=== PATIENT | male | born 1955 | race Caucasian/White ===

== ENCOUNTER 2022-04-10 12:01 | Emergency (ER) | payer OTHER, SELFPAY ==
--- NOTE | ~2022-04-10 | CT_ITS ---
EXAMINATION: CT HEAD WITHOUT CONTRAST CLINICAL INFORMATION: Intermittent blindness right eye COMPARISON: None TECHNIQUE: Contiguous axial imaging was performed from the skull base to vertex without intravenous administration of contrast. Additional 2-D coronal and sagittal reformatted images are generated on the CT workstation and uploaded to PACS. This CT examination was performed using dose optimization techniques as appropriate, variously including the following: *Automated exposure control *Adjustment of mA and/or kV according to patient size (this includes techniques or standardized protocols for targeted exams where dose is matched to indication/reason for exam; i.e. extremities or head) *Use of iterative reconstruction technique DLP: 850 mGy-cm FINDINGS: There is no intracranial hemorrhage, hematoma, or extra-axial fluid collection. The ventricles are normal in size. There is no hydrocephalus, edema, or mass effect. The espinosa-white matter differentiation appears well preserved . There are bilateral basal ganglia calcifications. There is no visible acute territorial infarct or mass lesion. The orbits are unremarkable. The globes and optic nerves appear symmetric. The suprasellar cistern and quadrigeminal cistern are unremarkable. The calvarium appears intact. There is no pneumocephalus or orbital emphysema. There is some minor mucosal thickening left sphenoid, ethmoid air cells and posterior right sphenoid. No air-fluid levels. The middle ears and mastoids are compared clear. CT/CT head/brain wo IV con IMPRESSION: No acute intracranial abnormality.
--- NOTE | ~2022-04-10 | XR_ITS ---
EXAMINATION: XR CHEST CLINICAL INFORMATION: Right eye intermittent blindness. COMPARISON: None TECHNIQUE: 2 views of the chest were obtained. FINDINGS: The lungs are well-expanded with platelike atelectasis right lung base. Heart size and pulmonary vascularity is normal. There is mild dorsal spine spondylosis. No bony abnormality seen XR/XR chest 2V IMPRESSION: Minimal atelectatic changes right lung base. There is mild spondylosis dorsal spine.
--- NOTE | 2022-04-10 12:07 | ECG_ITS ---
Test Reason : WEAKNESS Blood Pressure : / mmHG Vent. Rate : 084 BPM Atrial Rate : 084 BPM P-R Int : 140 ms QRS Dur : 090 ms QT Int : 370 ms P-R-T Axes : 074 074 057 degrees QTc Int : 437 ms Normal sinus rhythm Nonspecific ST abnormality Abnormal ECG No previous ECGs available Referred By: Kimberly Haley Electronically Signed By:GHAZALA DENNIS MD
[2022-04-10 12:09] VITALS: BP 188/85; PULSE 88; RESP 18; TEMP 36.6; O2SAT 96; BMI 30.7
--- NOTE | 2022-04-10 12:10 | ED_ITS ---
HPI - Eye Problem General Chief complaint: Eye Problems Stated complaint: ? Stroke Sent By Dr Puga Seen by Provider: 04/10/22 13:55 Source: patient and family Mode of arrival: ambulatory Limitations: no limitations History of Present Illness HPI Narrative: 66yoM c PMHX of cataracts who is presenting to the ER with complaints of right eye visual changes where he goes blind only from right eye that last approximat juan 15-20 minutes that has been present since January. Reports he did not have an episode today it is usually comes only once a week. Although today he went to his eye doctor today and he was telling the parts lister his symptoms and parts lister told him that he could possibly having a stroke since January therefore he sent him here for further evaluation treatment. He reports this is only reason why he is here. He reports that he did not seek treatment 3 months ago because he relies that he could wait until his appointment today with his parts lister. He denies any other symptoms related to this. chief complaint: vision change Onset (ago): month(s) (2-3 months) Onset description: gradual Duration: intermittent Location: right eye Eye Symptoms: decreased vision Mechanism: none If Pain, Quality: other (No pain per patient ) Context: other (hx of cataract) Associated symptoms: none Treatments Prior to Arrival: none Related Data Allergies Allergy/AdvReac Type Severity Reaction Status Date / Time Penicillins [PENICILLINS] Allergy Unknown REACTION Unverified 12/08/19 16:45 UNKNOWN Review of Systems Review of Systems: Constitutional : No fevers, no chills, No changes in activity, No lethargy, No recent prior head injury, No agitation, No increased fussiness ENT/Mouth : No Ear Pain, No Nasal discharge/drainage Eyes: + Vision changes/blurry/decreased vision onlky to Right eye, No Eye Pain, No Swelling, No Redness, No Foreign Body, No Photophobia, no discharge, no drainage, no itching, no eyelid edema, no contact lens uses, no recent welding, no bleeding Cardiovascular : No Chest Pain, No SOB Respiratory : No Cough Gastrointestinal : No Nausea, No Vomiting, No abdominal Pain Genitourinary : No Dysuria, No Urinary Frequency, No Urinary Incontinence, No Urgency, No Flank Pain Musculoskeletal : No joint pain, No neck stiffness, No back pain/injury Skin : No lacerations Neuro : No unsteady gait, No Paresthesias, No Loss of Consciousness, No altered mental status, No dizziness, No Headache Denies past medical history of HIV, recent trauma, coagulopathy, recent spinal/ epidural procedure, new medication, URI symptoms, close contacts with similar symptoms, tick bite, or known CO2 exposure. Yes all other systems are reviewed and are negative PMFSH Past Medical History Attestation statement: The following information was validated with the patient. Source: old records reviewed, obtained from family and nursing notes reviewed Social History Social History Advance Directives: No Physical Exam Vital Signs: Vital Signs: Last Vital Signs Temp 97.8 F 04/10/22 12:09 Pulse 88 04/10/22 12:09 Resp 18 04/10/22 12:09 BP 188/85 H 04/10/22 12:09 Pulse Ox 96 04/10/22 12:09 O2 Del Method 04/10/22 12:09 BMI result Body Mass Index 30.7 vital signs have been reviewed as normal and appeared to be correct. Blood pressure 188/85. Heart rate normal. Respiration rate normal. Temperature normal. Oxygen saturation normal. Appearance: Alert. Oriented X3. No acute distress. Head: Normal external exam. Normocephalic. Atraumatic. Able to rotate head bilaterally. Eyes: PERRLA. EOMI. Conjunctiva are normal. Cornea are normal. Funduscopic exam within normal limits. Sclera normal. Eyelids normal. No papilledema noted. Anterior chamber normal. No photophobia noted. No nystagmus noted. Corneal reflex normal. ENT: EAC normal. TM's Normal. Hearing normal. Pharynx normal. Uvula midline. tongue midline. Moist mucous membranes. No trismus noted. No drooling noted. No muffled voice noted. No nystagmus noted. Neck: Normal inspection. Neck supple. FROM. No adenopathy. Trachea midline. Thyroid Normal. No meningeal signs. No neck mass noted. CVS: Normal heart rate and rhythm. Heart sound normal. No murmurs noted. Pulses normal throughout. Respiratory: No respiratory distress. Painless inspiration. Breath sounds normal. No wheezes/rales/rhonchi noted. Chest nontender. No accessory muscle usage noted or decreased air movement noted. Abdomen: Soft and nontender. Bowel sounds normal in all 4 quadrants. No distention noted. No organomegaly noted. No visible injury noted. Back: No CVA tenderness. Full range of motion noted. Skin: Skin warm and dry. Normal skin color. Normal skin turgor. No rashes/lesions/lacerations noted. Extremities: No lower extremity edema. Extremities exhibit normal range of motion. Extremities nontender. Able to shrug shoulders bilaterally and keep up against resistance. Neuro: Oriented X 3. No motor deficit. No sensory deficit. Reflexes normal. Moving all extremities. No focal motor deficits. Cranial nerves II-XI intact bilaterally. Facial strength normal. Normal cognition. Speech normal. Gait n ormal. Strength 5/5 throughout. No pronator drift. No tremor noted. No fasciculations noted. No rigidity noted. Muscle tone normal throughout. No asterixis noted. Avbvch-de-okfa test normal. Heel to peralta test normal. Tandem gait normal. Does not sway with eyes open. Romberg test negative. Rapid a lternating movement upper extremity normal. Rapid alternating movement lower extremity normal. Hand drop from overhead Misses face. NIHSS score 0. Course Course Course Narrative: MIKE 12:11PM - 66yoM c PMHX of cataracts who is presenting to the ER with complaints of right eye intermittent and blindness that last approximately 15-20 minutes that has been present since January. Reports he did not have an episode today it is usually like 1 to week. Although today he went to his eye doctor and he was telling the parts lister his symptoms and parts lister told him that he could possibly having a stroke therefore he sent him here for further evaluation treatment. He reports this is only reason why he is here. He reports that he did not seek treatment 3 months ago because he relies that he could wait until his appointment today with his parts lister. He denies any other symptoms related to this. On exam patient is alert oriented x3. Not in any acute distress. No focal dalila ral that are noted. Moving all extremities. Negative pronator drift. Normal cranial nerves bilaterally. Normal motor throughout. Normal sensation. NIH SS score 0 and patient would not be a tPA candidate as symptoms started 3 months ago. Plan: Labs, EKG, CT scan of brain, chest x-ray. Patient will be sent to the ER for further evaluation treatment. Reevaluation(s) Reevaluation #1: Labs reviewed - Carbon dioxide 32 - BUN 29. - random glucose 130. Otherwise all other labs are within normal limits. CT scan of brain within normal limits no acute processes are noted. Chest x-ray within normal limits no acute processes are noted. Therefore at this time patient most likely worsening cataract at this time due to symptoms being present since January no additional labs or imaging indicated. Patient will be discharged with instructions to follow-up with parts lister and to return if any new worsening symptoms follow up with PCP. Patient understands agrees with this plan. Time: 13:45 Medical Decision Making Lab Data MDM Lab Attestation statement: I reviewed the patient's lab results. 04/10/22 12:27 04/10/22 12:27 Labs: Lab Results 04/10/22 04/10/22 04/10/22 Range/Units 12:27 12:27 12:27 WBC 7.2 (4.8-10.8) X10*3/uL RBC 5.65 (4.60-5.80) X10*6/uL Hgb 16.5 (14.0-18.0) g/dl Hct 48.1 (42.0-52.0) % MCV 85.1 (80.0-98.0) fL MCH 29.2 (27.0-33.0) pg MCHC 34.3 (31.0-36.0) g/dl RDW 13.0 (11.0-16.0) % Plt Count 232 (160-400) X10*3/uL MPV 9.2 L (9.4-12.4) fL Immature Gran % (Auto) 0.3 (0.0-0.4) % Neut % (Auto) 53.6 (45-73) % Lymph % (Auto) 37.2 (20-40) % [place] % (Auto) 5.8 (2-11) % Eos % (Auto) 2.1 (0-4) % Baso % (Auto) 1.0 (0-2) % Lymph # (Auto) 2.7 (1.2-4.9) X10*3/uL [place] # (Auto) 0.4 (0.1-1.2) X10*3/uL Eos # (Auto) 0.2 (0.0-0.4) X10*3/uL Baso # (Auto) 0.1 (0.0-0.2) X10*3/uL Abs Immat Gran (auto) 0.02 (0.00-0.03) X10*3/uL Absolute Neuts (auto) 3.9 (2.0-8.3) x10*3/uL Absolute Nucleated RBC 0.000 (0.0-0.012) X10*3/uL Nucleated RBC % (auto) 0.0 (0.0-0.2) /100WBC PT 12.8 (10.0-13.1) SEC INR 1.1 (0.9-1.1) Sodium 143 (135-145) mmol/L Potassium 4.8 (3.3-5.1) mmol/L Chloride 104 (96-108) mmol/L Carbon Dioxide 32 H (22-29) mmol/L Anion Gap 12 (12-20) BUN 29 H (9-16) mg/dL Creatinine 1.40 (0.5-1.4) mg/dL Estim Creat Clear Calc 56.2 Estimated GFR 51 Random Glucose 130 H (60-115) mg/dL Calcium 9.7 (8.4-10.2) mg/dL Magnesium 2.1 (1.6-2.6) mg/dL Total Bilirubin 0.4 (0.0-1.0) mg/dL AST 20 (5-37) U/L ALT 12 (0-40) U/L Alkaline Phosphatase 91 (39-117) U/L Troponin I High Sens (<3.5-35.0) ng/L B-Natriuretic Peptide (<100) pg/mL Total Protein 7.2 (6.5-8.0) g/dL Albumin 4.2 (3.5-5.0) g/dL 04/10/22 04/10/22 Range/Units 12:27 12:27 WBC (4.8-10.8) X10*3/uL RBC (4.60-5.80) X10*6/uL Hgb (14.0-18.0) g/dl Hct (42.0-52.0) % MCV (80.0-98.0) fL MCH (27.0-33.0) pg MCHC (31.0-36.0) g/dl RDW (11.0-16.0) % Plt Count (160-400) X10*3/uL MPV (9.4-12.4) fL Immature Gran % (Auto) (0.0-0.4) % Neut % (Auto) (45-73) % Lymph % (Auto) (20-40) % [place] % (Auto) (2-11) % Eos % (Auto) (0-4) % Baso % (Auto) (0-2) % Lymph # (Auto) (1.2-4.9) X10*3/uL [place] # (Auto) (0.1-1.2) X10*3/uL Eos # (Auto) (0.0-0.4) X10*3/uL Baso # (Auto) (0.0-0.2) X10*3/uL Abs Immat Gran (auto) (0.00-0.03) X10*3/uL Absolute Neuts (auto) (2.0-8.3) x10*3/uL Absolute Nucleated RBC (0.0-0.012) X10*3/uL Nucleated RBC % (auto) (0.0-0.2) /100WBC PT (10.0-13.1) SEC INR (0.9-1.1) Sodium (135-145) mmol/L Potassium (3.3-5.1) mmol/L Chloride (96-108) mmol/L Carbon Dioxide (22-29) mmol/L Anion Gap (12-20) BUN (9-16) mg/dL Creatinine (0.5-1.4) mg/dL Estim Creat Clear Calc Estimated GFR Random Glucose (60-115) mg/dL Calcium (8.4-10.2) mg/dL Magnesium (1.6-2.6) mg/dL Total Bilirubin (0.0-1.0) mg/dL AST (5-37) U/L ALT (0-40) U/L Alkaline Phosphatase (39-117) U/L Troponin I High Sens < 3.5 (<3.5-35.0) ng/L B-Natriuretic Peptide 27 (<100) pg/mL Total Protein (6.5-8.0) g/dL Albumin (3.5-5.0) g/dL Independent Interpretation I performed an independent interpretation of an: EKG (EKG normal sinus rhythm with ventricular rate of [address] abnormalities no acute ischemic change are noted. No prior EKGs in our system to compare to at this time.) and CT Scan Interpretation: CT scan of brain without contrast FINDINGS: There is no intracranial hemorrhage, hematoma, or extra-axial fluid collection.? The ventricles are normal in size. There is no hydrocephalus, edema, or mass effect.? The espinosa-white matter differentiation appears well preserved .? There are bilateral basal ganglia calcifications.? There is no visible acute territorial infarct or mass lesion. The orbits are unremarkable. The globes and optic nerves appear symmetric. The suprasellar cistern and quadrigeminal cistern are unremarkable. The calvarium appears intact. There is no pneumocephalus or orbital emphysema.? There is some minor mucosal thickening left sphenoid, ethmoid air cells and posterior right sphenoid. No air-fluid levels. The middle ears and mastoids are compared clear. CT/CT head/brain wo IV con IMPRESSION: No acute intracranial abnormality. Chest x-ray FINDINGS: The lungs are well-expanded with platelike atelectasis right lung base. Heart size and pulmonary vascularity is normal. There is mild dorsal spine spondylosis. No bony abnormality seen XR/XR chest 2V IMPRESSION: Minimal atelectatic changes right lung base. There is mild spondylosis dorsal spine. Radiology Impression Discussion of test interpretation with radiology: I have reviewed the radiologist's reading. Critical Care Time Critical Care Time Critical Care Time: Yes Total Critical Care Time: 60 Attestation: I personally attest to this time spent taking care of the patient Discharge Plan Discharge Clinical Impression: Cataract, Visual disturbance Patient Disposition: Home, Self-Care Instructions: Cataracts (ED) Referrals: Josleyn Hawkins NP [Primary Care Provider] - 2 days Interventions: ED Discharge Assessment Last Done: 04/10/22 14:27 Discharge Date/Time: 04/10/22 14:28
[2022-04-10 12:32] LABS: MANUAL DIFF FLAG NO
[2022-04-10 12:37] LABS: Basophils Absolute Auto 0.1 X10*3/uL (0.0-0.2); Eosinophils Absolute Auto 0.2 X10*3/uL (0.0-0.4); Eosinophils Percent Auto 2.1 % (0-4); Hematocrit 48.1 % (42.0-52.0); Hemoglobin 16.5 g/dl (14.0-18.0); Imm Gran Abs Auto 0.02 X10*3/uL (0.00-0.03); Imm Gran Pct Auto 0.3 % (0.0-0.4); Lymphocytes Absolute Auto 2.7 X10*3/uL (1.2-4.9); Lymphocytes Percent Auto 37.2 % (20-40); Mean Corpuscular HGB Conc 34.3 g/dl (31.0-36.0); Mean Corpuscular Hemoglobin 29.2 pg (27.0-33.0); Mean Corpuscular Volume 85.1 fL (80.0-98.0); Mean Platelet Volume 9.2 fL (9.4-12.4); Monocytes Absolute Auto 0.4 X10*3/uL (0.1-1.2); Monocytes Percent Auto 5.8 % (2-11); Neutrophils Absolute Auto 3.9 x10*3/uL (2.0-8.3); Neutrophils Percent Auto 53.6 % (45-73); Platelet Count 232 X10*3/uL (160-400); Red Blood Count 5.65 X10*6/uL (4.60-5.80); White Blood Count 7.2 X10*3/uL (4.8-10.8)
[2022-04-10 12:50] LABS: INTERNATIONAL NORM RATIO 1.1 (0.9-1.1); Prothrombin Time 12.8 SEC (10.0-13.1)
[2022-04-10 12:53] LABS: Alanine Aminotransferase 12 U/L (0-40); Albumin Level 4.2 g/dL (3.5-5.0); Alkaline Phosphatase 91 U/L (39-117); Anion Gap 12 (12-20); Aspartate Amino Transferase 20 U/L (5-37); Bilirubin Total 0.4 mg/dL (0.0-1.0); Blood Urea Nitrogen 29 mg/dL (9-16); Calcium 9.7 mg/dL (8.4-10.2); Carbon Dioxide 32 mmol/L (22-29); Chloride 104 mmol/L (96-108); Creatinine Clr Calc Pharmacy 56.2; Estimated Glomerular Filt Rate 51; Glucose Random 130 mg/dL (60-115); Magnesium 2.1 mg/dL (1.6-2.6); Potassium 4.8 mmol/L (3.3-5.1); Sodium 143 mmol/L (135-145); Total Protein 7.2 g/dL (6.5-8.0)
[2022-04-10 12:56] LABS: B Type Natriuretic Peptide 27 pg/mL (<100)
[2022-04-10 13:00] LABS: Troponin-I High Sensitivity < 3.5 ng/L (<3.5-35.0)
== END 2022-04-10 14:28 | disposition home or self-care (01) ==
PROVIDERS: Physician Assistant Medical; Emergency Provider Emergency Medicine Emergency Medical Services; PCP Nurse Practitioner Family
DX: H26.9 Unspecified cataract (principal); H53.11 Day blindness; R94.31 Abnormal electrocardiogram [ECG] [EKG]; R06.02 Shortness of breath; R53.1 Weakness; R51.9 Headache, unspecified; Z79.899 Other long term (current) drug therapy
CPT/HCPCS: 36415; 70450; 71046; 80053; 83735; 83880; 84484; 85025; 85610; 93005; 99283; 99284